=== PATIENT | male | born 1965 | race Caucasian/White ===

== ENCOUNTER → 2024-07-05 07:07 | Outpatient (REF) | payer MEDICARE, SELFPAY ==
[2024-07-05 10:14] LABS: ALT (SGPT) 20 U/L (0-50); AST (SGOT) 28 U/L (17-59); Alkaline Phosphatase 40 U/L (38-126); Blood Urea Nitrogen 22 mg/dl (9-20); Calcium 9.5 mg/dl (8.4-10.2); Carbon Dioxide 25 mmol/L (22-30); Chloride 103 mmol/L (98-107); Glucose 86 mg/dl (70-99); Potassium 4.7 mmol/L (3.5-5.1); Sodium 141 mmol/L (135-145); Total Bilirubin 0.7 mg/dl (0.2-1.3); Total Protein 8.1 g/dl (6.3-8.2); eGFR > 60.00
[2024-07-05 10:39] LABS: PSA, Total - Screen 1.07 ng/ml (0.0-4.0)
== END ==
LOC: HWRAD 07:07
PROVIDERS: ATTENDING PHYSICIAN Specialist; FAMILY PHYSICIAN Family Medicine
DX: N31.2 Flaccid neuropathic bladder, not elsewhere classified (principal); Z12.5 Encounter for screening for malignant neoplasm of prostate
CPT/HCPCS: 36415; 76775; 80053; G0103

== ENCOUNTER 2025-04-08 11:03 | Emergency (ER) | payer MEDICARE, SELFPAY ==
[2025-04-08 11:10] VITALS: BP 107/66
--- NOTE | 2025-04-08 12:03 | ED.SKININJ ---
HPI-Injury
General
Chief Complaint: Skin Surface Trauma
Source: patient
Exam Limitations: none
Time Seen by Provider: 04/08/25 11:48
History of Present Illness-Injury
Initial Injury comments:
59-year-old male [id number] presents complaining of amputation of the right distal long finger he sustained today. He got a pinch between 2 pipes. Last tetanus unknown. He denies significant pain. He is companied by his brother who is
his power of blind escort. Patient does have a history of developmental delay
Phy Exam
Physical Exam
Physical Exam:
General: Well-appearing male no acute respiratory distress
ENT: Normal cephalic atraumatic
Musculoskeletal exam: Right long finger with amputation of the distal portion. The nail is completely avulsed. I do not see any obvious bony involvement
Vascular: Minimal bleeding right long finger
Course
Orders/Labs/Results
Orders:
Orders
04/08/25 11:56
Cephalexin Monohydrate [Keflex] 500 mg PO NOW STA
Tetanus/Diphth/Acelpertussis [Adacel] 0.5 ml IM .ONCE ONE
CR Finger(s)/thumb Min 2 Vw Rt Urgent
Comment:
Reason For Exam: amputation
Vital Signs
Initial and Last Documented VS:
Initial Vital Signs
Pulse Resp BP Pulse Ox
66 16 107/66 97
04/08/25 11:10 04/08/25 11:10 04/08/25 11:10 04/08/25 11:10
Last Documented Vital Signs
Pulse Resp BP Pulse Ox
66 16 107/66 97
04/08/25 11:10 04/08/25 11:10 04/08/25 11:10 04/08/25 12:06
MDM/Problems Addressed
Differential Diagnosis Includes:
Amputation right long finger. X-ray pending to evaluate for bony injury. Will update tetanus vaccine. Will order Keflex for coverage.
*Pulse Oximetry
SaO2: 97
Oxygen Mode of Delivery: Room air
Patient hypoxic: no
*Critical Care Note
Total Time (30-74mins, 75-104mins- exclusive of procedures): Not Applicable
Update Note
Update Note:
X-rays of the right long finger demonstrate fracture of the distal tuft of the long finger. Dressing was applied. Keflex started. Referred to hand specialist
ED Attending Note
-
Portions of this chart may have been created with voice recognition software.� Occasional wrong word or��sound alike� substitutions may have occurred due to the inherent limitations of voice recognition software.
Discharge Plan
Departure
Patient Disposition: Home (Routine Discharge)
Date of Disposition: 04/08/25
Time of Disposition: 13:59
Patient with high blood pressure during this ER visit?: No
Discharge Problem:
Amputation of finger tip
Instructions: Wound Care (DC)
Prescriptions:
New
cephalexin 500 mg capsule
500 mg PO Q8H 7 Days Qty: 21 0RF
No Action
Senecot
2 tab PO DAILY
clotrimazole-betamethasone 1-0.05 % cream
1 applic topical BID 14 Days Qty: 45 0RF
Referrals:
Kevin Kiser MD [Active, Orthopedics]
UNKNOWN - PT DOES,NOT KNOW [Family Provider]
Activity Restrictions/Additional Instructions:
Change dressing as needed. Please follow-up with hand specialist. Take antibiotic as directed.
Interventions
Interventions:
*Risk Screen - Suicide Last Done: 04/08/25 11:50
*General Assessment Last Done: 04/08/25 11:50
*Neglect/Abuse Screening Last Done: 04/08/25 11:50
*ED- Fall Risk Assessment Last Done: 04/08/25 11:50
ED-Skin Assessment Last Done: 04/08/25 11:48
Discharge Date and Time
Print Language: EQUATORIAL GUINEAN
[2025-04-08] MEDS: KEFLEX 500 MG PO (12:26)
[2025-04-08] MEDS: ADACEL 0.5 ML IM (12:27)
== END 2025-04-08 14:22 | disposition home or self-care (01) ==
LOC: EMR 11:03
PROVIDERS: EMERGENCY PHYSICIAN Student in an Organized Health Care Education/Training Program
DX: S68.612A Complete traumatic transphalangeal amputation of right middle finger, initial encounter (principal); W23.0XXA Caught, crushed, jammed, or pinched between moving objects, initial encounter
CPT/HCPCS: 90471; 99283; 73140; 90715

== ENCOUNTER → 2025-04-14 09:12 | Outpatient (REF) | payer MEDICARE, SELFPAY ==
[2025-04-14 14:02] LABS: Hematocrit 43.0 % (39.0-52.0); Hemoglobin 14.0 g/dL (13.0-18.0); Mean Corp Hgb Conc. 32.6 g/dL (33.0-37.0); Mean Corpuscular Volume 94.5 fL (80.0-94.0); Platelet Count 302 10^3/uL (130-400); Red Cell Dist. Width 12.1 % (11.5-14.5)
[2025-04-14 14:38] LABS: Blood Urea Nitrogen 17 mg/dl (9-20); Calcium 9.7 mg/dl (8.4-10.2); Carbon Dioxide 25 mmol/L (22-30); Chloride 102 mmol/L (98-107); Glucose 69 mg/dl (70-99); Potassium 4.5 mmol/L (3.5-5.1); Sodium 137 mmol/L (135-145); eGFR > 60.00
== END ==
LOC: SDSPAT 09:12
PROVIDERS: ATTENDING PHYSICIAN Orthopaedic Surgery
DX: Z01.818 Encounter for other preprocedural examination (principal)
CPT/HCPCS: 36415; 80048; 85027; 93005

== ENCOUNTER 2025-04-15 06:09 | Day surgery (SDC) | payer MEDICARE, SELFPAY ==
[2025-04-15] VITALS (9 sets, daily range): BP systolic 93–115; BP diastolic 48–61
[2025-04-15] MEDS: NORMOSOL-R/PLASMALYTE-A 1000 IV (08:21)
[2025-04-15] MEDS: TYLENOL 1000 MG PO (08:21)
== END 2025-04-15 11:40 | disposition home or self-care (01) ==
LOC: SDS 06:09
PROVIDERS: ATTENDING PHYSICIAN Orthopaedic Surgery
DX: S68.112A Complete traumatic metacarpophalangeal amputation of right middle finger, initial encounter (principal); X58.XXXA Exposure to other specified factors, initial encounter; F79 Unspecified intellectual disabilities
CPT/HCPCS: 26951; C1776